=== PATIENT | male | born 1975 | race Caucasian/White ===

== ENCOUNTER 2021-06-12 18:35 | Emergency (ER) | payer OTHER, SELFPAY ==
[2021-06-12 18:43] VITALS: BP 133/77; PULSE 65; RESP 16; TEMP 37.3; O2SAT 99
--- NOTE | 2021-06-12 18:45 | ED.EAR ---
HPI - Ear Problem General Chief complaint: Ear Stated complaint: Bleeding from left Ear Time Seen by Provider: 06/12/21 18:39 Source: patient and RN notes reviewed History of Present Illness HPI Narrative: Patient is a 45-year-old male who presents the urgent care with complaints of left ear pain, decreased hearing and bleeding from the left ear. Patient states that he woke up at 4 PM this afternoon with the above issues. Patient denies of any recent trauma to the ear. Denies of putting thing in the ear. Denies of any use of [id number] medication for pain. No other acute complaints. No acute distress noted. Patient aware of the plan of care. Some parts of this dictation were generated by voice recognition software and may contain typographical and/or grammatical inaccuracies. Related Data Home Medications Medication Instructions Recorded Confirmed B-complex with vitamin C 1 tablet PO DAILY 09/23/19 06/12/21 zolpidem 10 mg tablet 10 mg PO . q.h.s. PRN tablet 02/10/20 06/12/21 famotidine-Ca carb-mag hydrox 10 1 tablet PO BID PRN 06/04/21 06/12/21 mg-800 mg-165 mg chewable tablet Allergies Allergy/AdvReac Type Severity Reaction Status Date / Time codeine Allergy Severe BREATHING Verified 06/12/21 18:53 DIFFICULTY amoxicillin Allergy Unknown Diarrhea Verified 06/12/21 18:53 Review of Systems Review of Systems: Narrative: CONSTITUTIONAL: Denies fever, chills, or sweats. EYES: Denies visual changes, redness, or discharge. ENT: Denies rhinorrhea, congestion, sore throat.; Reports of left ear pain with bleeding from the ear CARDIOVASCULAR: Denies chest pain, palpitations, or edema. RESPIRATORY: Denies cough or dyspnea. GASTROINTESTINAL: Denies abdominal pain, nausea, vomiting, or diarrhea. GENITOURINARY: Denies dysuria or hematuria. SKIN: Denies rash or itching. MUSCULOSKELETAL: Denies back pain, joint pain, or myalgia. NEUROLOGIC: Denies headache, numbness, or weakness. All other systems reviewed are negative, except as documented in HPI. [facility] Past Medical History Medical History (Updated 06/12/21 @ 18:59 by BRIT Farooq) Abnormal fasting glucose Bilateral carpal tunnel syndrome BMI 26.0-26.9,adult Chronic bilateral low back pain with left-sided sciatica Chronic depression Chronic insomnia Encounter for prostate cancer screening GERD (gastroesophageal reflux disease) Hypogonadism male Mixed hyperlipidemia Obstructive sleep apnea Restless legs syndrome Seasonal allergic rhinitis Shift work sleep disorder Tobacco use disorder, continuous Ulnar neuropathy of both upper extremities Vitamin B12 deficiency anemia Family History Family History (System 01/27/20 @ 15:29 by Isabel Mann) Grandparent Diabetes mellitus Mother Family history of hypercholesterolemia Hypertension Patient's mother is in good health Father Depression, Onset Age: 55 Family history of lung cancer Social History Social History Smoking packs per day: 1.5 Smoking cigarettes per day: 30.0 Years smoked: 30 Smoking pack-years: 45.00 Smoking status: Current every day smoker Tobacco type: cigarettes Alcohol intake: current Drinks per week: 12 Alcohol use details: beer Substance use: never Comments At the time of my signature, I reviewed and agree with the nursing past medical, surgical, social, and family history. There is no relevant family history pertinent to the patient complaint. Exam Narrative: Exam Narrative: GENERAL: This is a well-nourished, well-developed patient, in no apparent distress. HEAD: normocephalic, atraumatic. EYES: PERRL. Sclera clear/white. Vision is grossly intact. EARS: External ears normal, scant dried blood noted to the left auditory canal, right auditory canals clear and without drainage, unable to visualize bilateral TMs due to cerumen impaction. Hearing grossly intact. NOSE: External nos
[2021-06-12 18:52] VITALS: BP 133/77; PULSE 65; RESP 16; TEMP 37.3; O2SAT 99
== END 2021-06-12 19:00 | disposition home or self-care (01) ==
PROVIDERS: Emergency Provider Nurse Practitioner Family; PCP Family Medicine
DX: H66.92 Otitis media, unspecified, left ear (principal); H61.23 Impacted cerumen, bilateral; F17.210 Nicotine dependence, cigarettes, uncomplicated; K21.9 Gastro-esophageal reflux disease without esophagitis; E78.2 Mixed hyperlipidemia; G47.33 Obstructive sleep apnea (adult) (pediatric); G25.81 Restless legs syndrome
CPT/HCPCS: 69209; 99213; G0463

== ENCOUNTER 2024-06-14 12:06 | Outpatient (CLI) | payer OTHER, SELFPAY ==
--- NOTE | ~2024-06-14 | CT_ITS ---
CT sinus wo con Ordering provider: Antonia Orlando NP History: . L02.01 - Cutaneous abscess of face . Comparison: None. Technique: Thin slice Scans CT of the paranasal sinuses was performed with coronal and sagittal refor matted images. No IV contrast. . Automated exposure control and iterative reconstruction technique w ere employed. The dose-length product was 322.78 mGy-cm. Findings: NASAL SEPTUM: midline. OSTEOMEATAL UNITS: Bilaterally patent. NASAL TURBINATES AND NASOPHARYNX: Normal. PARANASAL SINUSES: Right maxillary sinus disease. Right frontal sinus disease. VISUALIZED MASTOIDS: Bilateral interstitial effusion. BONES: Normal. Dental cares seen in the upper mandible. SUPERFICIAL SOFT TISSUES/VISUALIZED BRAIN PARENCHYMA: Fat stranding seen in the subcutaneous tissues of the right side of the face suggestive of cellulitis. No abscess formation seen bilaterally small l ymph nodes are seen in the submandibular areas IMPRESSION: Right maxillary and frontal sinus disease. Stranding in the subcutaneous tissues of the right side of the face suggestive of cellulitis with no abscess formation. Reviewed, dictated and finalized at location A.
== END 2024-06-14 12:07 | disposition home or self-care (01) ==
PROVIDERS: PCP Family Medicine; Visit Provider Nurse Practitioner Family
DX: L02.01 Cutaneous abscess of face (principal); J32.0 Chronic maxillary sinusitis; J32.1 Chronic frontal sinusitis
CPT/HCPCS: 70486